=== PATIENT | male | born 1990 | race Two or more races ===

== ENCOUNTER 2021-03-05 00:13 | Emergency (ER) | payer MEDICAID ==
[~2021-03-05] VITALS: Ht 175.3 cm; Wt 64.4 kg
[2021-03-05 03:00] LABS: Basophils # (auto) 0 10 ^3/uL (0-0.2); Basophils % (auto) 0.1 % (0.0-2.0); Eosinophils # (auto) 0 10 ^3/uL (0-0.8); Hemoglobin 14.6 g/dL (13.5-17.5); Lymphocytes # (auto) 0.4 10 ^3/uL (0.4-5.4); Lymphocytes % (auto) 1.9 % (10.0-50.0); Mean Corpuscular Hemoglobin 29.7 pg (28.0-32.0); Mean Corpuscular Hgb Conc. 34.7 g/dL (32.0-36.0); Mean Corpuscular Volume 85.7 fL (80.0-100.0); Monocytes # (auto) 1.1 10 ^3/uL (0-1.3); Neutrophils # (auto) 20.2 10 ^3/uL (1.6-8.6); Red Blood Cells 4.91 10^6/uL (4.5-5.90); Red Cell Distribution Width 12.9 % (11.8-14.3); White Blood Cell 21.7 10^3/uL (4.4-10.8)
[2021-03-05 03:05] LABS: Albumin 4.5 g/dL (3.4-5.0); Calcium 8.8 mg/dL (8.5-10.1); Potassium 3.8 mmol/L (3.5-5.1)
[2021-03-05 03:08] LABS: BUN/Creatinine Ratio 15.8
[2021-03-05 04:41] LABS: Urine Amorphous Crystal MANY /hpf (None Seen); Urine Bacteria NONE SEEN /hpf (None Seen); Urine Blood Negative /uL (Negative); Urine Mucus FEW (None Seen); Urine Specific Gravity 1.035 (1.001-1.035); Urine WBC 55 /hpf (0 - 3); Urine WBC Clumps PRESENT /hpf (None Seen)
[2021-03-05 06:44] VITALS: BP 116/76
== END 2021-03-05 07:28 | disposition home or self-care (01) ==
LOC: ER 00:13
DX: K52.9 Noninfective gastroenteritis and colitis, unspecified (principal); N20.0 Calculus of kidney; T67.5XXA Heat exhaustion, unspecified, initial encounter; J45.909 Unspecified asthma, uncomplicated; Z20.822 Contact with and (suspected) exposure to COVID-19; X58.XXXA Exposure to other specified factors, initial encounter; Y93.89 Activity, other specified; Y92.89 Other specified places as the place of occurrence of the external cause; Y99.8 Other external cause status
CPT/HCPCS: 36415; 74176; 80053; 81001; 83690; 85025; 87426

== ENCOUNTER 2021-11-26 20:59 | Emergency (ER) | payer MEDICAID ==
[~2021-11-26] VITALS: Ht 175.3 cm; Wt 68.9 kg
[2021-11-26 21:01] VITALS: BP 135/69
== END 2021-11-27 03:01 | disposition left against medical advice (07) ==
LOC: ER 21:01
DX: M79.89 Other specified soft tissue disorders (principal); Z53.21 Procedure and treatment not carried out due to patient leaving prior to being seen by health care provider

== ENCOUNTER 2022-02-28 00:37 | Emergency (ER) | payer MEDICAID ==
[~2022-02-28] VITALS: Ht 175.3 cm; Wt 68.2 kg
[2022-02-28] MEDS ORDERED: LORazepam 0.5 MG TAB PO ONE (01:15)
[2022-02-28] MEDS ORDERED: QUEtiapine FUMARATE 25 MG TAB PO ONE (01:15)
[2022-02-28 03:17] VITALS: BP 128/76
== END 2022-02-28 03:20 | disposition home or self-care (01) ==
LOC: ER 00:37
DX: R04.0 Epistaxis (principal); L76.22 Postprocedural hemorrhage of skin and subcutaneous tissue following other procedure